=== PATIENT | female | born 1995 | race Caucasian/White ===

== ENCOUNTER 2016-06-02 23:55 | Emergency (ER) | payer SELFPAY ==
[~2016-06-02] VITALS: Ht 172.7 cm; Wt 63.2 kg
[~2016-06-02 23:55] MED LIST: CLIN1CAP6 PO; NAPR500 PO
[2016-06-03 00:24] VITALS: BP 112/72; PULSE 95; RESP 16; TEMP 98.8; O2SAT 98
== END 2016-06-03 01:30 | disposition left against medical advice (07) ==
LOC: PHED 23:55
DX: R21 Rash and other nonspecific skin eruption (principal)
CPT/HCPCS: 99281

== ENCOUNTER 2016-06-22 16:54 | Emergency (ER) | payer SELFPAY ==
[~2016-06-22] VITALS: Ht 172.7 cm; Wt 64.0 kg
[2016-06-22 17:25] VITALS: BP 106/62; PULSE 74; RESP 16; TEMP 98.9; O2SAT 100
== END 2016-06-22 18:27 | disposition left against medical advice (07) ==
LOC: PHED 16:54
DX: L08.9 Local infection of the skin and subcutaneous tissue, unspecified (principal)
CPT/HCPCS: 99281

== ENCOUNTER 2016-06-23 23:30 | Emergency (ER) | payer SELFPAY ==
[~2016-06-23] VITALS: Ht 172.7 cm; Wt 65.5 kg
[2016-06-23 23:40] VITALS: BP 100/66; PULSE 100; RESP 22; TEMP 99.2; O2SAT 98
[2016-06-24] MEDS ORDERED: KETOROLAC TROMETHAMINE 30 MG/ML (IVP) VIAL IVP ONE (02:15)
[2016-06-24] MEDS ORDERED: CLINDAMYCIN INJ 900 MG in SODIUM CHLORIDE 0.9% INJ 100 ML IV ONE (02:15)
[2016-06-24] MEDS ORDERED: IBUP-232 PO (03:23)
[2016-06-24] MEDS ORDERED: BACT2OIN TOPICAL (03:23)
[2016-06-24] MEDS ORDERED: BACT800T5 PO (03:23)
[2016-06-24] MEDS ORDERED: CLIN1CAP5 PO (03:23)
--- NOTE | 2016-06-24 03:29 | PD ---
HPI Chief Complaint: Skin Problem Time Seen by Provider: 02:09 Travel History International Travel<30 days: No Contact w/Intl Traveler<30days: No Traveled to known affect area: No History of Present Illness HPI 21 year-old female presents to the emergency department for complaint of redness swelling tenderness and blister formation to the left proximal forearm. Patient is an IV drug abuser. Patient denies injecting at the site. No report of thermal burn or chemical burn to the arm. Patient denies ascending erythema or axillary tenderness or lymphadenopathy. Patient denies fever chills. Patient is right-handed. Patient does admit to IV drug use. Patient denies . Symptoms have been present for approximate 4 days. PFSH Past Medical History Narrative Medical IV drug abuse orthopedic surgery cellulitis; tobacco use alcohol use substance use; nursing notes reviewed Diminished Hearing: No Medical other: Yes (IV OPIATES ABUSE ) Tetanus Vaccination: Unknown ?: Not LMP: 05/26/16 Social History Alcohol Use: Yes (occ) Tobacco Use: Yes (05/18 PPD) Substance Use: Yes (IV OPIATES 06/19/16) Allergies-Medications (Allergen,Severity, Reaction): Coded Allergies: No Known Allergies (Verified , 06/24/16) Reported Meds & Prescriptions Reported Meds & Active Scripts Active Bactroban Topical (Mupirocin) 2% Oint 1 Appl TOPICAL BID Ibuprofen 600 Mg Tab 600 Mg PO Q6H PRN Bactrim DS (Sulfamethoxazole-Trimethoprim) 800-160 Mg Tab 1 Tab PO BID Clindamycin (Clindamycin HCl) 150 Mg Cap 300 Mg PO Q6H 7 Days Review of Systems Except as stated in HPI: all other systems reviewed are Neg General / Constitutional: No: Fever, Chills HENT: No: Congestion Cardiovascular: No: Chest Pain or Discomfort Respiratory: No: Shortness of Breath Gastrointestinal: No: Nausea, Vomiting, Abdominal Pain Genitourinary: No: Flank Pain Musculoskeletal: No: Myalgias, Arthralgias Skin: Positive Rash, Positive Lumps, No Itching Neurologic: No: Weakness, Dizziness Psychiatric: No: Anxiety Hematologic/Lymphatic: No: Lymph Node Enlargement Physical Exam Narrative GENERAL: Well-developed well-nourished female in no acute distress no respiratory distress SKIN: Warm and dry. HEAD: Normocephalic. EYES: No scleral icterus. No injection or drainage. NECK: Supple, trachea midline. No JVD or lymphadenopathy. CARDIOVASCULAR: Regular rate and rhythm without murmurs, gallops, or rubs. RESPIRATORY: Breath sounds equal bilaterally. No accessory muscle use. GASTROINTESTINAL: Abdomen soft, non-tender, nondistended. MUSCULOSKELETAL: No cyanosis, or edema. Attention proximal left forearm volar aspect area of induration 6 cm x 6 cm with central induration 2 cm x 2 cm with central bullous lesion. No ascending erythema or axillary lymphadenopathy; distally extremity is neurovascular tendon intact. Right upper extremity bilateral lower extremities no abnormality identified. BACK: Nontender without obvious deformity. No CVA tenderness. Data Data Last Documented VS Vital Signs Date Time Temp Pulse Resp B/P Pulse Ox O2 Delivery O2 Flow Rate FiO2 06/24/16 03:43 97.8 16 06/24/16 03:01 06/23/16 23:40 100 98 Orders Wound Culture And Gram Stain (06/24/16 02:09) Ketorolac Inj (Toradol Inj) (06/24/16 02:15) Clindamycin Inj (Cleocin Inj) (06/24/16 02:15) Clindamycin (Cleocin) (06/24/16 03:30) Ibuprofen (Motrin) (06/24/16 03:30) MDM Medical Decision Making Medical Screen Exam Complete: Yes Emergency Medical Condition: Yes Medical Record Reviewed: Yes Differential Diagnosis Cellulitis, abscess, partial thickness burn, contact dermatitis Narrative Course Area looks consistent with abscess and surrounding cellulitis/induration; IV antibiotics ordered Patient refuses IV antibiotics antibiotics canceled and patient given oral antibiotic Area suspicious for early abscess patient unwilling to have I&D performed at this time; patient currently afebrile vital signs are stable except for heart rate of 100. We will give patient a trial of oral antibiotics and encouraged patient to recheck in the emergency department 12-24 hrs. to reassess for possible I&D at that time. Diagnosis Primary Impression: Cellulitis of forearm, left Additional Impression: Abscess of left forearm Referrals: Primary Care Physician 1 day Patient Instructions: General Instructions Additional Instructions: Apply warm compresses Complete course of antibiotic as prescribed Recommend recheck in the emergency department in 12-24 hours for I&D Take acetaminophen/Tylenol as needed for fever 100.4F or greater Take prescription strength ibuprofen as needed for pain associated with inflammation or for fever 100.4F or greater Return to the emergency department for any concerns or change in condition Follow-up with your primary care provider Med/Other Pt SpecificInfo: Prescription(s) given Scripts Mupirocin Topical (Bactroban Topical)2% Oint1 Appl TOPICAL BID #1 TUBE Ref 0 Prov:Ghada Vazquez MD 06/24/16 Ibuprofen 600 Mg [id number] Mg PO Q6H PRN (Pain/Inflammation) #12 TAB Ref 0 Prov:Ghada Vazquez MD 06/24/16 Sulfamethoxazole-Trimethoprim (Bactrim DS)800-160 Mg Tab1 Tab PO BID #14 TAB Ref 0 Prov:Ghada Vazquez MD 06/24/16 Clindamycin 150 Mg [id number] Mg PO Q6H 7 Days Ref 0 Prov:Ghada Vazquez MD 06/24/16 Disposition: 01 DISCHARGE HOME Condition: Stable Ghada Vazquez MD Jun 24, 2016 03:29
[2016-06-24] MEDS ORDERED: CLINDAMYCIN 150 MG CAP PO ONE (03:30)
[2016-06-24] MEDS ORDERED: IBUPROFEN 600 MG TAB PO ONE (03:30)
[2016-06-24 03:43] VITALS: TEMP 97.8
== END 2016-06-24 03:44 | disposition home or self-care (01) ==
LOC: PHED 23:30 → PHEFT 06-24 03:44
DX: L02.414 Cutaneous abscess of left upper limb (principal); B95.62 Methicillin resistant Staphylococcus aureus infection as the cause of diseases classified elsewhere
CPT/HCPCS: 86403; 87070; 87186; 99283

== ENCOUNTER → 2017-02-10 | Outpatient (CLI) | payer MEDICAID ==
[~2017-02-10] MED LIST changes: +BACT2OIN TOPICAL; +BACT800T5 PO; +CLIN1CAP5 PO; -CLIN1CAP6 PO; +IBUP-232 PO; -NAPR500 PO
--- NOTE | 2017-02-10 16:25 | HHI.PR ---
Addendum to Inpatient Note Addendum Reason: Additional Documentation Additional Information Consult for Zulma Styles MR: [id number] Maternal Hx: Mom is a 21 y/o WF, with a history of IVDU and is now on subutex and under the obstetric care of Dr. Welch. She was referred to [facility] and [facility] for concerns of IUGR at 32 weeks gestation. Mom was late to care. 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 Mom refused an amniocentesis. Dr. Welch has been made aware of the findings and is assisting mom in scheduling a MRI in [place]. A neonatology consult was requested today with the primary question of determining place of delivery. Of note: No records available at time of consult but Dr. Romero and TIANNA received verbal report from [facility] regarding brief history and ultrasound findings. Maternal Management: Mom will be seen twice weekly for BPP & Dopplers. MRI will hopefully be completed in the next 1-2 weeks. Discussion: Dr. Romero and TIANNA met with Miss Styles and her father to discuss new found concerns of potential brain anomalies on today's ultrasound. Dr. Romero explained that current ultrasound findings suggest that the infant's brain has not developed correctly with an increase in fluid and decrease in brain tissue. For that reason, it is suggested that mom deliver at a tertiary care facility ( ie: breathing difficulties, potenital for seizure activity, etc). Mom will continue to receive care locally as transportation is a challenge. Mom was assured that if an emergency arose, that she and her infant could/would be cared for/stabilized at [place]. However, it would be better for her to deliver at [facility] if possible, so that her infant could receive the necessary care (ie: MRI, EEG, genetics/neurology consults, etc) and then she would be in the same hospital versus a separation from her that would occur if the baby delivered at [place] and subsequently required transfer. Mom verbalized understanding. Dr. Hemphill offered for the neonatology team to meet with her again at a future visit after MRI was completed and more information is available about specific diagnosis. Mom verbalized understanding that this is potentially a very serious diagnosis. Mom stated that she expected to hear abnormal findings today given that she is "small for being 7 months " and that she did not know she was in the beginning of her . She stated that she would have made changes if she knew she was and that she never wanted to hurt her baby/she loves her baby. Mom became very tearful and expressed guilt about her baby having problems. Review of previous documentation from [place] (unrelated to ) documented mom's acknowledgement of IV opiate use as well as smoking cigarettes. Greater than 50% of consultation time (35min) was spent in face to face discussion with mom. Billie Pierre Feb 10, 2017 16:25
== END ==
LOC: HPND 11:40
PROVIDERS: ATTEND Obstetrics & Gynecology
DX: O35.1XX0 Maternal care for (suspected) chromosomal abnormality in fetus, not applicable or unspecified (principal); Q04.8 Other specified congenital malformations of brain
CPT/HCPCS: 76811; 76825; 76827; 93325

== ENCOUNTER 2017-03-29 12:50 | Inpatient (IN) | payer MEDICAID ==
[~2017-03-29] VITALS: Ht 170.2 cm; Wt 65.0 kg
[2017-03-29] VITALS (63 sets, daily range): BP systolic 102–140; BP diastolic 40–98; PULSE 43–87; RESP 16–20; TEMP 97.5–98.5; O2SAT 99–100
[~2017-03-29 12:50] MED LIST changes: +CLIN150C14 PO; -CLIN1CAP5 PO
[2017-03-29] MEDS ORDERED: LACTATED RINGER'S 1000 ML INJ 1,000 ML IV PRN (13:26)
[2017-03-29] MEDS ORDERED: CITRIC ACID-SODIUM CITRATE LIQ 30 ML UDC PO SCH (13:30)
[2017-03-29] MEDS ORDERED: LIDOCAINE HCL 1% 50 ML VIAL INFIL PRN (13:30)
[2017-03-29] MEDS ORDERED: SODIUM CHLORID 0.9% 500 ML INJ 500 ML IV PRN (13:30)
[2017-03-29] MEDS ORDERED: PENICILLIN G POTASSIUM INJ 5,000,000 UNITS in SODIUM CHLORIDE 0.9% INJ 100 ML IV ONE (13:30)
[2017-03-29] MEDS ORDERED: OXYTOCIN 30 UNITS-500ML PREMIX 500 ML IV ONE (13:30)
[2017-03-29] MEDS ORDERED: LIDOCAINE HCL 1% 50 ML VIAL I-DERMAL PRN (13:30)
[2017-03-29] MEDS ORDERED: MINERAL OIL 10 ML VIAL TOPICAL PRN (13:30)
[2017-03-29] MEDS ORDERED: OXYTOCIN 30 UNITS-500ML PREMIX 500 ML IV SCH (13:30)
[2017-03-29] MEDS ORDERED: SODIUM CHLOR 0.9% 1000 ML INJ 1,000 ML IV PRN (13:46)
[2017-03-29] MEDS ORDERED: subutex PO (13:49)
[2017-03-29] MEDS ORDERED: FERR325T18 PO (13:49)
[2017-03-29] MEDS ORDERED: VIST50CA PO (13:49)
[2017-03-29] MEDS ORDERED: PRENTAB7 (13:49)
[2017-03-29 14:07] LABS: AUTOMATED NEUTROPHIL # 7.7 TH/MM3 (1.8-7.7); BASOPHIL % 0.2 % (0.0-2.0); EOSINOPHIL % 0.3 % (0.0-4.0); HEMATOCRIT 38.1 % (35.0-46.0); HEMO FLAGS DIFF FINAL; LYMPHOCYTE # 2.2 TH/MM3 (1.0-4.8); MEAN CELL VOLUME 82.6 FL (80.0-100.0); MEAN CORPUSCULAR HEMOGLOBIN 27.8 PG (27.0-34.0); MEAN CORPUSCULAR HGB CONC 33.7 % (32.0-36.0); MONO % 4.8 % (0.0-8.0); NEUT % 73.7 % (16.0-70.0); PLATELET COUNT 242 TH/MM3 (150-450); RED BLOOD COUNT 4.61 MIL/MM3 (4.00-5.30); RED CELL DISTRIBUTION WIDTH 15.5 % (11.6-17.2); WHITE BLOOD COUNT 10.4 TH/MM3 (4.0-11.0)
[2017-03-29 14:12] LABS: BACTERIA, URINE OCC /hpf; BLOOD, URINE LARGE (NEG); COMMENT (UR) CULTURE INDICATED; CULTURE IF INDICATED CULTURE INDICATED; GLUCOSE,URINE NEG (NEG); KETONE, URINE NEG (NEG); MUCUS URINE FEW /lpf (OCC); NITRITE,URINE NEG (NEG); SQUAMOUS EPITHELIAL CELL URINE 1 /hpf (0-5); URINE COLOR YELLOW (YELLW/STRAW)
[2017-03-29] MEDS: LACTATED RINGER'S 1000 ML INJ 1,000 ML IV SCH ×2 (14:24→17:57)
[2017-03-29] MEDS: PENICILLIN G POTASSIUM INJ 2,500,000 UNITS in SODIUM CHLORIDE 0.9% INJ 100 ML IV SCH ×2 (17:56→21:50)
[2017-03-29] MEDS ORDERED: fentaNYL 2MCG-BUPIV 0.125% INJ 100 ML ONE (19:55)
[2017-03-29] MEDS ORDERED: ePHEDrine/NS 25 MG/5 ML SYR ONE (19:56)
--- NOTE | 2017-03-29 20:07 | HHI.HP ---
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 Prental began at [facility] at about 30 weeks and transferred to [facility] for high risk issues of opioid use disorder and brain anomalies identified on late evaluation. She has also had chronic moderate bleeding for two weeks. Occasional UCs. Good movement. Baby small but over 10% on last biometry. Has hep C identified during . Group B strep + Currently lives with her Dad. Has been on subutex since entering practice. Has also used methamphetamine during time of frequent drug screening but denies any more IVDA, since large abcess incised and drained on right forearm. Weeks Gestation: 39 Para: 0 : 1 History Past Medical History Medical History: Denies Significant Hx Past Surgical History Surgical History: No Previous Surgery Family History Family History: Negative Social History Alcohol Use: No Tobacco Use: Yes Substance Abuse: Yes Allergies-Medications (Allergen,Severity, Reaction): Coded Allergies: *MDRO Multi-Drug Resistant Organism (Verified Adverse Reaction, Unknown, ) MRSA (arm wound) - 06/24/16 Home Meds Reported Medications Ferrous Sulfate (Ferrous Sulfate) 325 Mg (65 Mg Iron) Tablet, 325 MG PO DAILY for Nutritional Supplement, #30 TAB 0 Refills 03/29/17 Pnv No.95/Ferrous Fum/Folic AC ( Vitamins Tablet) 28 Mg Iron-800 Mcg Tablet 03/29/17 Hydroxyzine Pamoate (Vistaril) 50 Mg Cap, 50 MG PO QID Y for SLEEP, CAP 0 Refills 03/29/17 [subutex] No Conflict Check, 8 MG PO BID 03/29/17 Discontinued Scripts Mupirocin Topical (Bactroban Topical) 2% Oint, 1 APPL TOPICAL BID for Mgmt Bacterial Infection, #1 TUBE 0 Refills Prov:Ghada Vazquez MD 06/24/16 Ibuprofen (Ibuprofen) 600 Mg Tab, 600 MG PO Q6H Y for Pain/Inflammation, #12 TAB 0 Refills Prov:Ghada Vazquez MD 06/24/16 Sulfamethoxazole-Trimethoprim (Bactrim DS) 800-160 Mg Tab, 1 TAB PO BID for Infection, #14 TAB 0 Refills Prov:Ghada Vazquez MD 06/24/16 Clindamycin (Clindamycin) 150 Mg Cap, 300 MG PO Q6H for Infection for 7 Days, CAP 0 Refills Prov:Ghada Vazquez MD 06/24/16 Review of Systems General / Constitutional: No: Fever, Weight Gain, Chills, Other Eyes: No: Diploplia, Blurred Vision, Visual changes, Pain, Photophobia HENT: No: Headaches, Vertigo, Lightheadedness Cardiovascular: No: Irregular Rhythm, Chest Pain or Discomfort, Palpitations, Tachycardia, Syncope, Varicosities, Edema, Cyanosis Respiratory: No: Cough, Short of Breath, Other Gastrointestinal: No: Nausea, Vomiting, Diarrhea Genitourinary: No: Decreased Urinary Output, Oliguria Musculoskeletal: No: Limited ROM, Weakness, Cramping, Edema, Pain Skin: No Rash, No Itching, No Dryness, No Lumps, No Change in Pigmentation, No Change in Nails, No Alopecia, No Lesions Neurologic: No: Weakness, Dizziness, Syncope, Focal Abnormalities, Coordination Problem, Headache, Slurred Speech, Seizures Psychiatric: No: Depression, Suicidal Ideations, Homicidal Ideation Endocrine: No: Heat Intolerance, Cold Intolerance, Polydipsia, Polyuria, Other Physical Exam Vital Signs Date Time Temp Pulse Resp B/P (MAP) Pulse Ox O2 Delivery O2 Flow Rate FiO2 03/29/17 19:22 18 03/29/17 19:20 47 138/73 (94) 03/29/17 18:24 98.4 03/29/17 17:21 59 130/66 (87) 03/29/17 17:20 16 03/29/17 16:22 18 03/29/17 16:19 87 102/83 (89) 03/29/17 15:47 55 140/98 (112) 03/29/17 15:45 18 03/29/17 15:15 18 03/29/17 15:12 60 123/72 (89) 03/29/17 14:06 60 133/77 (95) 03/29/17 13:15 18 11/13/17 13:15 97.9 03/29/17 13:11 67 134/82 (99) Narrative GENERAL: Well-nourished, well-developed patient. SKIN: Warm and dry. HEAD: Normocephalic and atraumatic. EYES: No scleral icterus. No injection or drainage. ENT: No nasal drainage noted. Mucous membranes pink. Airway patent. NECK: Supple, trachea midline. No JVD. CARDIOVASCULAR: Regular rate and rhythm without murmurs, gallops, or rubs. RESPIRATORY: Breath sounds equal bilaterally. No accessory muscle use. BREASTS: Bilateral exam showed no masses , no retractions, no nipple discharge. ABDOMEN/GI: Abdomen soft, non-tender, bowel sounds present, no rebound, no guarding Gravid to [-] weeks size Fundal Height: [-] GENITOURINARY: External Genitalia: intact and normal in appearance 1-2/90%/very posterior and deviated to left zero station EFW 6 pounds EXTREMITIES: No cyanosis or edema. old tracks only BACK: Nontender without obvious deformity. No CVA tenderness. NEUROLOGICAL: Awake and alert. Motor and sensory grossly within normal limits. Five out of 5 muscle strength in all muscle groups. Normal speech. Caprini VTE Risk Assessment Caprini VTE Risk Assessment: No/Low Risk (score <= 1) Caprini Risk Assessment Model Point Value = 1 Point Value = 2 Point Value = 3 Point Value = 5 Age 41-60 Minor surgery BMI > 25 kg/m2 Swollen legs Varicose veins or History of unexplained or recurrent spontaneous Oral contraceptives or hormone replacement Sepsis (< 1 month) Serious lung disease, including pneumonia (< 1 month) Abnormal pulmonary function Acute myocardial infarction Congestive heart failure (< 1 month) History of inflammatory bowel disease Medical patient at bed rest Age 61-74 Arthroscopic surgery Major open surgery (> 45 min) Laparoscopic surgery (> 45 min) Malignancy Confined to bed (> 72 hours) Immobilizing plaster cast Central venous access Age >= 75 History of VTE Family history of VTE Factor V Leiden Prothrombin [id number] Lupus anticoagulant Anticardiolipin antibodies Elevated serum homocysteine Heparin-induced thrombocytopenia Other congenital or acquired thrombophilia Stroke (< 1 month) Elective arthroplasty Hip, pelvis, or leg fracture Acute spinal cord injury (< 1 month) Prophylaxis Regimen Total Risk Factor Score Risk Level Prophylaxis Regimen 0-1 Low Early ambulation 2 Moderate Order ONE of the following: *Sequential Compression Device (SCD) *Heparin 5000 units SQ BID 3-4 Higher Order ONE of the following medications: *Heparin 5000 units SQ TID *Enoxaparin/Lovenox 40 mg SQ daily (WT < 150 kg, CrCl > 30 mL/min) *Enoxaparin/Lovenox 30 mg SQ daily (WT < 150 kg, CrCl > 10-29 mL/min) *Enoxaparin/Lovenox 30 mg SQ BID (WT < 150 kg, CrCl > 30 mL/min) AND/OR *Sequential Compression Device (SCD) 5 or more Highest Order ONE of the following medications: *Heparin 5000 units SQ TID (Preferred with Epidurals) *Enoxaparin/Lovenox 40 mg SQ daily (WT < 150 kg, CrCl > 30 mL/min) *Enoxaparin/Lovenox 30 mg SQ daily (WT < 150 kg, CrCl > 10-29 mL/min) *Enoxaparin/Lovenox 30 mg SQ BID (WT < 150 kg, CrCl > 30 mL/min) AND *Sequential Compression Device (SCD) Data Data Orders Orders ^ Non Stress Test (03/29/17:) Response To Medication .Post New Med Administration, Reaction (03/29/17:) ^ Discontinue Medication (03/29/17:) Oxytocin 30 Units-500ml Premix (Pitocin (03/29/17 13:30) Admit To Inpatient (03/29/17 ) Code Status (03/29/17:) Vital Signs (Adult) .Per protocol (03/29/17:) Activity Oob Ad Elaine (03/29/17:) Heart (03/29/17:) Amnioinfusion (03/29/17:) Urinary Catheter Management .ONCE (03/29/17:) Diet Liquid (03/29/17 Lunch) Lactated Ringer's 1000 Ml Inj (Lr 1000 M (03/29/17 13:26) Lactated Ringer's 1000 Ml Inj (Lr 1000 M (03/29/17 13:26) Sodium Chlorid 0.9% 500 Ml Inj (Ns 500 M (03/29/17 13:30) Sodium Chlor 0.9% 1000 Ml Inj (Ns 1000 M (03/29/17 13:46) Lidocaine 1% Inj (50 Ml) (Xylocaine 1% I (03/29/17 13:30) Citric Acid-Sodium Citrate Liq (Bicitra (03/29/17 13:30) Fentanyl Inj (Fentanyl Inj) (03/29/17 13:30) Fentanyl Inj (Fentanyl Inj) (03/29/17 13:30) Penicillin G Potassium Inj (Pfizerpen-G (03/29/17 13:30) Penicillin G Potassium Inj (Pfizerpen-G (03/29/17 18:00) Complete Blood Count With Diff (03/29/17:) Hold Clot (03/29/17:) Abo/Rh Blood Type (03/29/17:26) Urinalysis - C+S If Indicated (03/29/17 13:26) Drug Screen, Random Urine (03/29/17:) Hepatitis Profile (03/29/17:26) Resp Oxygen Non Rebreathe Mask (03/29/17 ) ^ Epidural / Intrathecal Infus (03/29/17 13:26) Oxytocin 30 Units-500ml Premix (Pitocin (03/29/17 13:30) Lidocaine 1% Inj (50 Ml) (Xylocaine 1% I (03/29/17 13:30) Light Mineral Oil (Muri-Lube Oil) (03/29/17 13:30) Inpatient Certification (03/29/17 ) Specimen To Be Collected PRN (03/29/17:26) Specimen To Be Collected PRN (03/29/17 13:26) Vascular Poc Ultrasound (03/29/17 ) Vascular Access Team Consult/P PRN (03/29/17 13:30) Urine Culture (03/29/17 13:15) Ob/Psych Drug Screen, Urine (03/29/17 14:00) Equip, Isolation Cart (03/29/17 16:47) Vre Pcr Surveillance (03/29/17 17:11) Instruction (03/29/17 17:14) Buprenorphine (Buprenorphine) (03/30/17 09:00) Hydroxyzine Pamoate (Vistaril) (03/29/17 20:00) Labs Laboratory Tests Test 03/29/17 13:15 03/29/17 13:35 03/29/17 14:52 03/29/17 16:55 Urine Color YELLOW Urine Turbidity CLEAR Urine pH 6.0 Urine Specific [place] 1.024 Urine Protein TRACE Urine Glucose (UA) NEG Urine Ketones NEG Urine Occult Blood LARGE Urine Nitrite NEG Urine Bilirubin NEG Urine Urobilinogen 2.0 Urine Leukocyte Esterase SMALL Urine RBC 1 Urine WBC 23 Urine Squamous Epithelial Cells 1 Urine Bacteria OCC Urine Mucus FEW Microscopic Urinalysis Comment CULTURE INDICATED Urine Opiates Screen NEG Urine Barbiturates Screen NEG Urine Amphetamines Screen NEG Urine Benzodiazepines Screen NEG Urine Cocaine Screen NEG Urine Cannabinoids Screen NEG White Blood Count 10.4 Red Blood Count 4.61 Hemoglobin 12.8 Hematocrit 38.1 Mean Corpuscular Volume 82.6 Mean Corpuscular Hemoglobin 27.8 Mean Corpuscular Hemoglobin Concent 33.7 Red Cell Distribution Width 15.5 Platelet Count 242 Mean Platelet Volume 8.5 Neutrophils (%) (Auto) 73.7 Lymphocytes (%) (Auto) 21.0 Monocytes (%) (Auto) 4.8 Eosinophils (%) (Auto) 0.3 Basophils (%) (Auto) 0.2 Neutrophils # (Auto) 7.7 Lymphocytes # (Auto) 2.2 Monocytes # (Auto) 0.5 Eosinophils # (Auto) 0.0 Basophils # (Auto) 0.0 CBC Comment DIFF FINAL Differential Comment Date/Time Source Procedure Growth Status 03/29/17 13:15 Urine Clean Catch Urine Culture Pending Received Assessment/Plan Assessment and Plan term IUP late entrant for care substance use disorder on buprenorphine and ativan 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
[2017-03-29] MEDS ORDERED: NO SYSTEM NARCOTICS PRN (21:45)
[2017-03-29] MEDS ORDERED: ePHEDrine/NS 25 MG/5 ML SYR IV PUSH PRN (21:45)
[2017-03-29] MEDS ORDERED: DO NOT ADMINISTER ANTICOAGULANTS PRN (21:45)
[2017-03-29] MEDS ORDERED: fentaNYL 2MCG-BUPIV 0.125% 100 ML EPIDURAL SCH (21:45)
[2017-03-30] VITALS (14 sets, daily range): BP systolic 111–133; BP diastolic 55–73; PULSE 44–91; RESP 16–20; TEMP 97.2–97.8; O2SAT 99–100
[2017-03-30] MEDS ORDERED: TERBUTALINE INJ 1 MG/ML AMP ONE (00:07)
[2017-03-30] MEDS ORDERED: CITRIC ACID-SODIUM CITRATE LIQ 30 ML UDC PO SCH (00:30)
[2017-03-30] MEDS ORDERED: LACTATED RINGER'S 1000 ML IV ONE (00:30)
[2017-03-30] MEDS ORDERED: LACTATED RINGER'S 1000 ML IV SCH (00:30)
[2017-03-30] MEDS ORDERED: ceFAZolin 1,000 MG/NS 100 ML IV SCH ×2 (00:30)
--- NOTE | 2017-03-30 01:14 | PD.OP ---
Operative Report Date of Surgery: Mar 30, 2017 Preoperative Diagnosis: (1) Bradycardic baseline heart rate (2) Third trimester Postoperative Diagnosis: (1) Delivered by section Procedure: Low tranverse section Anesthesia: general with duramorph and epidrual with fentanyl left Surgeon: Yuko Welch Facility Administrator(s): hospital staff Resident Surgeon: none Operation and Findings: profound persistent bradycardia with early labor known IUGR possible brain issues (no CSP seenI substance use disorder depression/anxiety EBL 500 tiny cord and small placenta to pathology\ excellent cry and tone at delivery 9 and 9 2700 gm clinically appears normal with no change in facial features to suggest holoprosencephaly cord blood and cord gas obtained Yuko Welch MD Mar 30, 2017 01:14
[2017-03-30] MEDS ORDERED: SODIUM CHLORIDE 0.9% FLUSH 10 ML FLUSH IV FLUSH PRN (01:15)
[2017-03-30] MEDS ORDERED: OXYTOCIN 30 UNITS-500ML PREMIX 500 ML IV ONE (01:15)
[2017-03-30] MEDS ORDERED: ZOLPIDEM TARTRATE 5 MG TAB PO PRN (01:15)
[2017-03-30] MEDS ORDERED: ACETAMINOPHEN 1000 MG/100 ML 100 ML IV ONE ×2 (01:15→02:24)
[2017-03-30] MEDS ORDERED: DOCUSATE SODIUM 50 MG/SENNA 8.6 MG TAB PO PRN (01:15)
[2017-03-30] MEDS ORDERED: SIMETHICONE 80 MG CHEWABLE TAB PO PRN (01:15)
[2017-03-30] MEDS ORDERED: ONDANSETRON HCL 4 MG/2 ML VIAL IV PUSH PRN (01:15)
[2017-03-30] MEDS ORDERED: LACTATED RINGER'S 1000 ML INJ 1,000 ML IV SCH (06:03)
[2017-03-30] MEDS: KETOROLAC TROMETHAMINE 60 MG/2 ML (IM) VIAL IM PRN ×4 (06:48→20:41)
--- NOTE | 2017-03-30 08:34 | HHI.OB ---
Subjective Post Operative Day: 0 Remarks had section about 1 am for prolonged bradycardia 9 and 9 apgars could not get TAP and epidural left in place painful at incision site on subutex, epidural, toradol and ofirmev Objective Vitals/I&O Vital Signs Date Time Temp Pulse Resp B/P (MAP) Pulse Ox O2 Delivery O2 Flow Rate FiO2 03/30/17 04:00 97.7 50 18 113/70 (84) 100 03/30/17 02:15 97.8 03/30/17 02:15 68 16 123/60 (81) 100 03/30/17 02:00 66 16 03/30/17 02:00 100 03/30/17 02:00 111/57 (75) 03/30/17 01:45 16 03/30/17 01:45 99 03/30/17 01:45 69 111/56 (74) 03/30/17 01:30 99 03/30/17 01:27 84 16 123/58 (79) 03/30/17 01:15 91 117/55 (75) 03/30/17 01:15 16 03/30/17 01:15 97.5 03/30/17 01:15 100 03/30/17 00:15 18 03/30/17 00:12 57 117/56 (76) 03/30/17 00:03 53 128/68 (88) 03/30/17 00:01 44 114/65 (81) 03/30/17 00:00 100 03/30/17 00:00 86 18 03/29/17 23:46 46 109/58 (75) 03/29/17 23:45 16 03/29/17 23:35 67 03/29/17 23:30 60 03/29/17 23:30 56 111/61 (78) 03/29/17 23:25 48 03/29/17 23:20 44 03/29/17 23:15 44 03/29/17 23:15 109/59 (76) 03/29/17 23:15 47 03/29/17 23:10 45 03/29/17 23:05 63 03/29/17 23:01 51 107/58 (74) 03/29/17 23:00 50 03/29/17 22:55 45 03/29/17 22:49 20 03/29/17 22:45 56 03/29/17 22:45 49 105/48 (67) 100 03/29/17 22:45 97.5 18 03/29/17 22:40 50 99 03/29/17 22:35 50 100 03/29/17 22:31 49 103/48 (66) 03/29/17 22:30 18 03/29/17 22:30 50 100 03/29/17 22:25 47 03/29/17 22:20 43 03/29/17 22:15 46 103/49 (67) 03/29/17 22:14 18 03/29/17 22:10 50 03/29/17 22:05 50 03/29/17 22:01 50 109/40 (63) 03/29/17 22:00 18 03/29/17 22:00 49 03/29/17 21:55 46 03/29/17 21:50 51 03/29/17 21:46 49 108/50 (69) 03/29/17 21:45 18 03/29/17 21:45 50 03/29/17 21:40 51 03/29/17 21:35 46 03/29/17 21:30 58 18 03/29/17 21:30 65 123/60 (81) 03/29/17 21:25 51 03/29/17 21:20 46 03/29/17 21:15 74 115/53 (73) 03/29/17 21:15 50 03/29/17 21:10 55 20 03/29/17 21:05 68 03/29/17 21:05 55 121/63 (82) 03/29/17 21:00 60 03/29/17 21:00 60 18 123/63 (83) 03/29/17 20:56 58 116/56 (76) 03/29/17 20:55 65 03/29/17 20:51 64 127/53 (77) 03/29/17 20:50 58 03/29/17 20:45 55 03/29/17 20:45 58 131/57 (81) 03/29/17 20:41 20 03/29/17 20:41 53 125/56 (79) 03/29/17 20:40 51 100 03/29/17 20:35 52 03/29/17 20:35 100 03/29/17 20:35 55 137/62 (87) 03/29/17 20:31 51 130/77 (94) 03/29/17 19:30 98.5 03/29/17 19:22 18 03/29/17 19:20 47 138/73 (94) 03/29/17 18:24 98.4 03/29/17 17:21 59 130/66 (87) 03/29/17 17:20 16 03/29/17 16:22 18 03/29/17 16:19 87 102/83 (89) 03/29/17 15:47 55 140/98 (112) 03/29/17 15:45 18 03/29/17 15:15 18 03/29/17 15:12 60 123/72 (89) 03/29/17 14:06 60 133/77 (95) 03/29/17 13:15 18 03/29/17 13:15 97.9 03/29/17 13:11 67 134/82 (99) Result Diagram: 03/29/17 1335 Objective Remarks GENERAL: Well-nourished, well-developed patient. CARDIOVASCULAR: Regular rate and rhythm without murmurs, gallops, or rubs. RESPIRATORY: Breath sounds equal bilaterally. No accessory muscle use. ABDOMEN/GI: Abdomen soft, non-tender, bowel sounds present. Incision: Clean, dry and intact. Fundus: Firm, non-tender at umbilicus. GENITOURINARY: Light to moderate bleeding. EXTREMITIES: No cyanosis or edema, non-tender, without signs of DVT. Medications and IVs Current Medications Medications (Trade) Dose Ordered Sig/Patti Route Start Time Stop Time Status Last Admin (Buprenorphine) 8 mg TID SL 03/30/17 09:00 (Vistaril) 50 mg HS PRN PO 03/29/17 20:00 Miscellaneous Information No systemic narcotics to be given except... UNSCH PRN .XX 03/29/17 21:45 03/30/17 21:44 Miscellaneous Information DO NOT ADMINISTER ANY ANTICOAGUL... UNSCH PRN .XX 03/29/17 21:45 03/30/17 21:44 Fentanyl/ Bupivacaine HCl 100 ml @ 0 mls/hr TITRATE EPIDURAL 03/29/17 21:45 (ePHEDrine/NS 25 MG/5 ML SYR) 10 mg UNSCH PRN IV PUSH 03/29/17 21:45 03/30/17 21:44 Lactated Ringer's 1,000 ml @ 100 mls/hr Q10H IV 03/30/17 06:03 03/31/17 02:02 Oxytocin 500 ml @ 100 mls/hr UNSCH X1 PRN IV 03/30/17 11:15 03/31/17 11:14 (NS Flush) 2 ml BID IV FLUSH 03/30/17 09:00 (NS Flush) 2 ml UNSCH PRN IV FLUSH 03/30/17 01:15 (Mylicon Chew) 80 mg QID PRN PO 03/30/17 01:15 (Toradol Inj) 30 mg Q6H PRN IM 03/30/17 01:15 03/31/17 01:14 03/30/17 06:52 (Elina-Colace) 2 tab Q12H PRN PO 03/30/17 01:15 (Ambien) 5 mg HS PRN PO 03/30/17 01:15 (M-M-R Ii Inj) 0.5 ml ONCE ONCE SQ 03/31/17 16:00 03/31/17 16:01 (Boostrix Inj) 0.5 ml ONCE ONCE IM 03/31/17 16:00 03/31/17 16:01 (Zofran Inj) 4 mg Q6H PRN IV PUSH 03/30/17 01:15 (Ativan) 1 mg Q12HR PO 03/30/17 09:00 (Zoloft) 100 mg DAILY PO 03/30/17 09:00 Assessment/Plan Assessment and Plan term IUP late entrant for care substance use disorder on buprenorphine and ativan 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
[2017-03-30] MEDS: LORazepam 1 MG TAB PO SCH ×2 (08:55→20:38)
[2017-03-30] MEDS: SERTRALINE HCL 100 MG TAB PO SCH ×2 (08:55→09:00)
[2017-03-30] MEDS: BUPRENORPHINE HCL 8 MG SUBLINGUAL TAB SL SCH ×2 (08:55→20:39)
[2017-03-30] MEDS ORDERED: SODIUM CHLORIDE 0.9% FLUSH 10 ML FLUSH IV FLUSH SCH (09:00)
[2017-03-30] MEDS ORDERED: BUPRENORPHINE HCL 8 MG SUBLINGUAL TAB SL SCH ×2 (09:00)
--- NOTE | 2017-03-30 09:53 | MP ---
cc: ANUSHAYUKO DATE OF SURGERY 03/30/2017 DATE OF 1995 PREOPERATIVE DIAGNOSIS A 39 week intrauterine with known IUGR and possible absence of the CSP substance use disorder, late entry to care, severe depression and anxiety. Baby for adoption. Profound bradycardia during induction with a lack of resuscitation in utero. POSTOPERATIVE DIAGNOSIS A 39 week intrauterine with known IUGR and possible absence of the CSP substance use disorder, late entry to care, severe depression and anxiety. Baby for adoption. Profound bradycardia during induction with a lack of resuscitation in utero, delivered. PROCEDURE Primary low transverse segment section. ANESTHESIA Epidural with Duramorph and will be left in place with Fentanyl over 24 hours. SURGEON Yuko Welch MD [employer] House staff FINDINGS A living male was delivered from RITA position with clear fluid and a very tiny umbilical cord with no [place]'s jelly. He had an excellent cry and good tone on the abdomen. Neither hypo or hypertonic. His 's were 9 at one and 9 at five. He had an excellent cry. Cord gas and cord blood were obtained and he was handed off to the neonatology team in attending. He did receive a 45-second delay before cord clamping. The placenta was delivered manually intact with a three-vessel cord and sent to pathology. The uterus was small, well contracted and bleeding was negligible. There was no evidence of adhesions, abnormal anatomy or excessive bleeding. ESTIMATED BLOOD LOSS 500 cc. COUNTS The sponge, instrument, and needle counts were correct. Mom and baby did have tolerated the procedure well. PROCEDURE The patient was taken to the operating room due to her unacceptable monitoring strip. She was quickly reinforced with her epidural and given Duramorph. She was placed in the dorsal supine position with weight off the vena cava was given one gram of Ancef. A Landry catheter was already in place and sequential's. A time-out was done with all in attendance. It was explained to her the indication for this procedure, the degree of concern over the heart monitoring warrants an expedite delivery. After assuring adequate epidural, a Pfannenstiel incision was made with a knife and carried down through the rectus fascia. The rectus fascia was incised with a Stephenson and taken off the rectus muscle. The rectus muscle was sharply entered in the midline and the parietal peritoneum entered. Bladder flap was created and a low incision was made in the lower uterine segment. The intrauterine cavity was entered and clear fluid was encountered. The infant was delivered with the findings as above. The cord was clamped x2, cut and handed to the neonatology team attending. A cord gas segment was obtained and cord blood was obtained. This was after a 45 second cord clamp delay. The placenta was delivered manually intact. The uterus was exteriorized, cleaned with a lap sponge and closed with chromic in a running interlocking fashion with a second horizontal imbricating suture. It was then replaced in the abdominal cavity and copious irrigation was performed with minimal clot removed. Then the rectus muscle and peritoneum was closed in a running fashion. The fascia was closed with a running fashion with 0-vi8, 3-0 was used to close the subcutaneous layer and then the skin was closed with 4-0 Vicryl on a Chester needle. Estimated blood loss was less than 500. Sponge, instrument, needle count correct. Mom and baby tolerated the procedure well. Sarina Wong of the adoption agency has been notified. MD PAULINE Rivers/ZEYNEPL /1:22 AM /9:44 AM
[2017-03-30] MEDS ORDERED: OXYTOCIN 30 UNITS-500ML PREMIX 500 ML IV PRN (11:15)
[2017-03-31] MEDS: IBUPROFEN 600 MG TAB PO PRN ×3 (03:41→15:34)
[2017-03-31] MEDS: GABAPENTIN 300 MG CAP PO PRN ×2 (03:41→15:34)
[2017-03-31 05:58] LABS: AUTOMATED NEUTROPHIL # 6.5 TH/MM3 (1.8-7.7); BASOPHIL % 0.2 % (0.0-2.0); EOSINOPHIL % 0.3 % (0.0-4.0); HEMATOCRIT 28.4 % (35.0-46.0); HEMO FLAGS DIFF FINAL; LYMPHOCYTE # 2.4 TH/MM3 (1.0-4.8); MEAN CELL VOLUME 83.6 FL (80.0-100.0); MEAN CORPUSCULAR HEMOGLOBIN 27.4 PG (27.0-34.0); MEAN CORPUSCULAR HGB CONC 32.8 % (32.0-36.0); MONO % 6.3 % (0.0-8.0); NEUT % 68.2 % (16.0-70.0); PLATELET COUNT 191 TH/MM3 (150-450); RED CELL DISTRIBUTION WIDTH 15.6 % (11.6-17.2); WHITE BLOOD COUNT 9.5 TH/MM3 (4.0-11.0)
--- NOTE | 2017-03-31 08:24 | HHI.OB ---
Subjective Post Operative Day: 1 Remarks Moving slowly but increasing activity states pain is a burning at the skin of the incision going through with adoption cannot have more toradol Objective Vitals/I&O Vital Signs Date Time Temp Pulse Resp B/P (MAP) Pulse Ox O2 Delivery O2 Flow Rate FiO2 03/30/17 19:35 48 118/72 (87) 03/30/17 19:35 97.2 20 03/30/17 14:40 97.4 49 18 133/73 (93) Result Diagram: 03/31/17 0510 Objective Remarks GENERAL: Well-nourished, well-developed patient. CARDIOVASCULAR: Regular rate and rhythm without murmurs, gallops, or rubs. RESPIRATORY: Breath sounds equal bilaterally. No accessory muscle use. ABDOMEN/GI: Abdomen soft, non-tender, bowel sounds present. Incision: Clean, dry and intact. no echymosis Fundus: Firm, non-tender at umbilicus. GENITOURINARY: Light to moderate bleeding. EXTREMITIES: No cyanosis or edema, non-tender, without signs of DVT. Medications and IVs Current Medications Medications (Trade) Dose Ordered Sig/Patti Route Start Time Stop Time Status Last Admin (Vistaril) 50 mg HS PRN PO 03/29/17 20:00 03/30/17 20:40 Fentanyl/ Bupivacaine HCl 100 ml @ 0 mls/hr TITRATE EPIDURAL 03/29/17 21:45 Oxytocin 500 ml @ 100 mls/hr UNSCH X1 PRN IV 03/30/17 11:15 03/31/17 11:14 (NS Flush) 2 ml BID IV FLUSH 03/30/17 09:00 (NS Flush) 2 ml UNSCH PRN IV FLUSH 03/30/17 01:15 (Mylicon Chew) 80 mg QID PRN PO 03/30/17 01:15 (Elina-Colace) 2 tab Q12H PRN PO 03/30/17 01:15 03/30/17 20:39 (Ambien) 5 mg HS PRN PO 03/30/17 01:15 (M-M-R Ii Inj) 0.5 ml ONCE ONCE SQ 03/31/17 16:00 03/31/17 16:01 (Boostrix Inj) 0.5 ml ONCE ONCE IM 03/31/17 16:00 03/31/17 16:01 (Zofran Inj) 4 mg Q6H PRN IV PUSH 03/30/17 01:15 (Ativan) 1 mg Q12HR PO 03/30/17 09:00 03/30/17 20:38 (Zoloft) 100 mg DAILY PO 03/30/17 09:00 (Buprenorphine) 8 mg BID SL 03/30/17 09:00 03/30/17 20:39 (Motrin) 600 mg Q6H PRN PO 03/31/17 03:30 03/31/17 03:41 (Neurontin) 300 mg Q6H PRN PO 03/31/17 03:30 03/31/17 03:41 Assessment/Plan Assessment and Plan term IUP late entrant for care substance use disorder on buprenorphine and ativan 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 AROM clear strip reassuring to date epidural prn anticipate neonatology made aware baby for adoption 03/30/17 6 hours post urgent section for bradycardia doing well BFA He will need assesment for brain anatomy mom will stay on subutex and manage pain as needed anticipate stay through POD 3 03/31/17 POD 1 going through adoption] MRI of brain results pending--appears normal visually with normal behavior of an JAMES baby pain management will likely be difficult concern about relapse on discharge discussing increasing subutex for now needs counseling and 12 step case management to help needs interconceptual counseling not ready for discharge Yuko Welch MD Mar 31, 2017 08:24
[2017-03-31] MEDS: SERTRALINE HCL 100 MG TAB PO SCH (08:43)
[2017-03-31] MEDS: LORazepam 1 MG TAB PO SCH (08:43)
[2017-03-31] MEDS: BUPRENORPHINE HCL 8 MG SUBLINGUAL TAB SL SCH ×3 (08:54→21:01)
[2017-03-31 09:00] VITALS: BP 118/72; PULSE 60; RESP 18; TEMP 98.1
[2017-03-31] MEDS ORDERED: LIDOCAINE HCL 5% OINT 37 GM TUBE TOPICAL SCH (10:00)
[2017-03-31] MEDS ORDERED: MEASLES, MUMPS, RUBELLA VACCINE 0.5 ML VIAL SQ ONE (16:00)
[2017-03-31] MEDS ORDERED: DIPHTH/TETANUS/ACEL PERTUSSIS (BOOSTER) 0.5 ML VIAL/PFS IM ONE (16:00)
--- NOTE | 2017-03-31 20:29 | HHI.PR ---
[facility] Note Note Late entry: called by oven press tender approximately 1830, RN concerned as pt somnolent; awakened to stimulation but otherwise extremely drowsy; pt had received dose of gabapentin and vistaril between 1500 adn 1600, both are new medications; pt is chronic subutex user, managed by Dr. Welch; vital signs wnl; O2 sat 98% on room air; BP wnl; normally scheduled for Ativan 1g bid and subutex tid; called to discuss plan of care with Dr. Welch; at this time hold all meds, continue pulse ox monitoring to ensure normal, if pt becomes agitated or painful ok to give scheduled dose of subutex, Ativan only if pain/agitation not relieved with subutex; continue to monitor closely, repeat UDS also ordered now Hailey Calderon MD Mar 31, 2017 20:29
[2017-03-31 20:30] VITALS: BP 136/76; PULSE 97; RESP 18; TEMP 99
[2017-03-31 22:30] VITALS: RESP 16
[2017-04-01 00:40] VITALS: BP 127/80; PULSE 86; RESP 16; TEMP 98.1
[2017-04-01 02:10] VITALS: RESP 16
[2017-04-01 04:20] VITALS: BP 139/77; PULSE 78; RESP 18; TEMP 97.5
[2017-04-01] MEDS: IBUPROFEN 600 MG TAB PO PRN ×3 (04:28→15:52)
[2017-04-01 06:00] LABS: AUTOMATED NEUTROPHIL # 6.5 TH/MM3 (1.8-7.7); BASOPHIL % 0.2 % (0.0-2.0); EOSINOPHIL # 0.1 TH/MM3 (0-0.4); EOSINOPHIL % 0.7 % (0.0-4.0); HEMATOCRIT 29.7 % (35.0-46.0); HEMO FLAGS DIFF FINAL; LYMPH % 21.3 % (9.0-44.0); MEAN CELL VOLUME 82.8 FL (80.0-100.0); MEAN CORPUSCULAR HGB CONC 33.8 % (32.0-36.0); MONO % 6.3 % (0.0-8.0); NEUT % 71.5 % (16.0-70.0); PLATELET COUNT 236 TH/MM3 (150-450); RED BLOOD COUNT 3.58 MIL/MM3 (4.00-5.30); WHITE BLOOD COUNT 9.2 TH/MM3 (4.0-11.0)
[2017-04-01 07:59] LABS: PHENCYCLIDINE URINE NEG (NEG)
[2017-04-01 08:02] LABS: BATH SALTS (MDPV) UR NEG (NEG); ECSTASY (MDMA) UR NEG (NEG); HEROIN (6-ACETYLMORPHINE) UR NEG (NEG); K2 SPICE UR NEG (NEG); OBMETHADONE UR NEG (NEG)
[2017-04-01 08:03] LABS: OBGABAPENTIN UR NEG (NEG); OBHYDROMORPHONE U NEG (NEG)
[2017-04-01] MEDS: BUPRENORPHINE HCL 8 MG SUBLINGUAL TAB SL SCH ×2 (10:02→13:45)
[2017-04-01] MEDS: LORazepam 1 MG TAB PO SCH (10:02)
--- NOTE | 2017-04-01 15:32 | HHI.OB ---
Subjective Post Operative Day: 3 Remarks signed the adoption papers and would like to go home I did not see yet (planned to at end of day) will let go home on motrin and return in 10 days to office. Objective Vitals/I&O Vital Signs Date Time Temp Pulse Resp B/P (MAP) Pulse Ox O2 Delivery O2 Flow Rate FiO2 04/01/17 04:20 97.5 78 18 139/77 (97) 04/01/17 02:10 16 04/01/17 00:40 98.1 04/01/17 00:40 86 16 127/80 (96) 03/31/17 22:30 16 03/31/17 20:30 99.0 97 18 03/31/17 20:30 136/76 (96) Result Diagram: 04/01/17 0457 Objective Remarks GENERAL: Well-nourished, well-developed patient. CARDIOVASCULAR: Regular rate and rhythm without murmurs, gallops, or rubs. RESPIRATORY: Breath sounds equal bilaterally. No accessory muscle use. ABDOMEN/GI: Abdomen soft, non-tender, bowel sounds present. Incision: Clean, dry and intact. no echymosis Fundus: Firm, non-tender at umbilicus. GENITOURINARY: Light to moderate bleeding. EXTREMITIES: No cyanosis or edema, non-tender, without signs of DVT. Medications and IVs Current Medications Medications (Trade) Dose Ordered Sig/Patti Route Start Time Stop Time Status Last Admin Fentanyl/ Bupivacaine HCl 100 ml @ 0 mls/hr TITRATE EPIDURAL 03/29/17 21:45 (NS Flush) 2 ml BID IV FLUSH 03/30/17 09:00 (NS Flush) 2 ml UNSCH PRN IV FLUSH 03/30/17 01:15 (Mylicon Chew) 80 mg QID PRN PO 03/30/17 01:15 (Elina-Colace) 2 tab Q12H PRN PO 03/30/17 01:15 03/30/17 20:39 (Ambien) 5 mg HS PRN PO 03/30/17 01:15 (Zofran Inj) 4 mg Q6H PRN IV PUSH 03/30/17 01:15 (Ativan) 1 mg Q12HR PO 03/30/17 09:00 04/01/17 10:02 (Zoloft) 100 mg DAILY PO 03/30/17 09:00 03/31/17 08:43 (Motrin) 600 mg Q6H PRN PO 03/31/17 03:30 04/01/17 10:01 (Buprenorphine) 8 mg TID SL 03/31/17 09:00 04/01/17 13:45 (Xylocaine 5% Oint) 1 applic Q8H TOPICAL 03/31/17 10:00 03/31/17 10:40 Assessment/Plan Assessment and Plan term IUP late entrant for care substance use disorder on buprenorphine and ativan 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 AROM clear strip reassuring to date epidural prn anticipate neonatology made aware baby for adoption 03/30/17 6 hours post urgent section for bradycardia infant doing well BFA He will need assesment for brain anatomy mom will stay on subutex and manage pain as needed anticipate stay through POD 3 03/31/17 POD 1 going through adoption] MRI of brain results pending--appears normal visually with normal behavior of an JAMES baby pain management will likely be difficult concern about relapse on discharge discussing increasing subutex for now needs counseling and 12 step case management to help needs interconceptual counseling not ready for discharge Yuko Welch MD Apr 01, 2017 15:32
--- NOTE | 2017-04-01 15:34 | HHI.DCPOC ---
Discharge Care Plan Additional Problems come in Wednesday for subutex and incision check Report Symptoms to Your Doctor -Temperature above 100.5 degrees -Redness, of incision or excessive or foul smelling drainage -Unusual pain or calf pain -Increased vaginal bleeding -Painful or difficulty urinating -Feelings of extreme sadness or anxiety after 2 weeks Goals to Promote Your Health * To prevent worsening of your condition and complications * To maintain your health at the optimal level Directions to Meet Your Goals Take your medications as prescribed Follow your dietary instruction Follow activity as directed Ensure plenty of rest for recovery Drink fluids for hydration Keep your appointments as scheduled Take your immunizations and boosters as scheduled If your symptoms worsen call your PCP, if no PCP go to Urgent Care Center or Emergency Room Smoking is Dangerous to Your Health. Avoid second hand smoke Call the 24-hour crisis hotline for domestic abuse at Yuko Welch MD Apr 01, 2017 15:34
== END 2017-04-01 16:03 | disposition home or self-care (01) | DRG 765 ==
LOC: H2EA 12:50 → H1EA 03-30 03:02
PROVIDERS: ADMIT Obstetrics & Gynecology; ATTEND Obstetrics & Gynecology
PROC: 10907ZC Drainage of Amniotic Fluid, Therapeutic from Products of Conception, Via Natural or Artificial Opening (ICD-10-PCS; 2017-03-29)
PROC: 10D00Z1 Extraction of Products of Conception, Low, Open Approach (ICD-10-PCS; principal; 2017-03-30)
DX: O36.5930 Maternal care for other known or suspected poor fetal growth, third trimester, not applicable or unspecified (principal); O98.42 Viral hepatitis complicating childbirth; F11.20 Opioid dependence, uncomplicated; O99.324 Drug use complicating childbirth; O99.824 Streptococcus B carrier state complicating childbirth; B19.20 Unspecified viral hepatitis C without hepatic coma; O76 Abnormality in fetal heart rate and rhythm complicating labor and delivery; Z3A.38 38 weeks gestation of pregnancy; Z37.0 Single live birth; F32.9 Major depressive disorder, single episode, unspecified; F41.9 Anxiety disorder, unspecified; O99.344 Other mental disorders complicating childbirth; O99.334 Smoking (tobacco) complicating childbirth; F17.210 Nicotine dependence, cigarettes, uncomplicated
CPT/HCPCS: 59025; 76937; 80074; 80307; 81001; 85025; 86850; 86900; 86901; 87077; 87086; 87186; 87500; 87641; 88307; G0481; J0131; J1885; J2540; J2590; J3105; J7120